=== PATIENT | female | born 2000 | race Caucasian/White ===

== ENCOUNTER 2019-03-23 13:46 | Inpatient (IN) | payer MEDICAID ==
[2019-03-23 14:18] VITALS: BMI 30.5
[2019-03-23] MEDS ORDERED: Nalbuphine HCL 10 mg/ml Ampule ONE (14:20)
[2019-03-23] MEDS ORDERED: Lactated Ringer's 1,000 ML IV ONE (14:21)
[2019-03-23] MEDS ORDERED: Oxytocin 30 UNIT in NS 500 ml 30 UNITS/500 ML BAG IV ONE ×3 (14:25→19:00)
[2019-03-23] MEDS ORDERED: Nalbuphine HCL 10 mg/ml Ampule IVP ONE ×2 (14:25→18:05)
[2019-03-23] MEDS ORDERED: Lactated Ringer's 1,000 ML IV SCH (14:30)
[2019-03-23 15:29] LABS: BASO % 0.3 % (0.0-2.0); EOS % 0.3 % (0.0-4.0); HEMOGLOBIN 10.6 g/dL (12.0-16.0); LYMPH # 1.8 K/uL (1.0-4.3); LYMPH % 16.9 % (20.0-40.0); MEAN CELL VOLUME 90.8 fl (81.0-99.0); MEAN CORPUSCULAR HEMOGLOBIN 31.9 pg (27.0-31.0); MEAN CORPUSCULAR HGB CONC 35.1 g/dL (33.0-37.0); MEAN PLATELET VOLUME 9.3 fl (7.2-11.7); MONO % 8.9 % (0.0-10.0); NEUT % 73.6 % (50.0-75.0); RBC 3.33 Mil/uL (3.80-5.20); RED CELL DISTRIBUTION WIDTH 13.8 % (11.5-14.5); WHITE BLOOD COUNT 10.9 K/uL (4.8-10.8)
--- NOTE | 2019-03-23 18:10 | OBHP ---
Datetime: 03/23/2019 14:40 IP Admit Plan: Admit to unit Abdomen - PN: Normal Lungs - PN: Normal Heart - PN: Normal HEENT - PN: Normal General - PN: Normal Membranes, Provider: Intact Gestation - Est Wks by US: 21.2 EGA AdmitDate IP: 21.2 Vital Signs Provider: Reviewed Vital Signs Provider Details: Elevated BP, chronic HTN IP Indication for Induction: Not Applicable IP Chief Complaint: Vaginal bleeding Dilatation, Provider: 10 Genitourinary Exam: Normal Datetime: 03/23/2019 14:15 IP Adm Impression: , intrauterine ; Intact Membranes IP Chief Complaint Other: Vaginal bleeding Admit Comment, IP Provider: HPI: Siri is a 18 year old G1 who was transferred from [place] ER via a mbulance for threatened labor. She presented to their ER earlier this morning for pain and va ginal bleeding. An US showed an open internal cervical os with membranes bulging into the vagina, but they appeared to be intact. A FHR was seen however there was borderline oligohydramnios and the fetu s was measuring 2 weeks behind her dating. Patient has continued to bleed since her arrival at the ER there. Per report from the ER physician she never had a genital/speculum exam and so there is no inf ormation known about her cervical dilation. FELIBERTO: 08/03/19 per LMP, concordant by 16 wk US PMH Chronic HTN Chlamydia infection earlier in pregnacy, treated PSH Denies Medications 200mg labetolol BID Allergies Shellfish - anaphylaxis Social FOB is involved in the . Denies tobacco, alcohol or drug use PHYSICAL EXAM Initial BPs >160/90, after several repeat pressures after patient had stopped crying there were 14 0s/80s Speculum exam: Bulging membranes seen 4-5cm from the vaginal introitus, no cervix was visualized labs: A+, antibody neg Bedside US: FHR seen, approximately 145 ASSESSMENT/PLAN: 18 year old G1 here with threatened labor. Given her speculum exam preter m delivery seems imminent at this time. Patient would not be a good candidate for rescue cerclage giv en her complete dilation and moderate vaginal bleeding, suggesting an abruption. Discussed management options and patient is undecided, she would like to wait and see what happens at this time. - Provide pain management options - Patient counseled on previability of - Discussed burial options as well for infant Plan discussed with attending, Dr. Bert Hernandez MD OB Fellow OB Hospitalist on-call.. . Earlier today, I received a call @9am from [facility] for this patient. The y attempted to contact her PMD at [facility] [place][Note 2]. When I called [facility] [place] and [facility] [place], the phys icain was not available and were not accepting transfer (PMD unavail). I spoke directly to Dr Maurilio Acevedo (he did send copy of chart). I accepted transfer to [facility]. She has bulgi ng membranes at 21w. With non-viable preg, I spoek to pt about conditoin with translators present. She understood condition and treatment optoin - medical induction. Risks/complications discussed als o. Her questoins answered and she stated that she understood. AUDRA
[2019-03-23] MEDS ORDERED: HYDROmorphone 0.5 mg/0.5 ml ISec IVP SCH (18:30)
[2019-03-23] MEDS ORDERED: Oxycodone/Acetaminophen 5/325 mg Tab PO PRN (19:10)
--- NOTE | 2019-03-23 20:14 | OBDS ---
DELIVERY PERSONNEL Delivery Doctor: Nay Noel DO French Comber: YiselmechelleCaryn RN MATERNAL INFORMATION Delivery Anesthesia: None Medications in Delivery: Pitocin 30u/500mL Maternal Complications: None Provider Comments: Notified 21w fetus and placenta all intact. No movement,. No breathing note d. 0,0. No vaginal bleeding noted. LABOR SUMMARY EDC: 08/01/2019 00:00 No. Babies in Womb: 1 Attempted: No Labor Anesthesia: None LABOR INFORMATION Reason for Induction: Not Applicable Complete Dilatation: 03/23/2019 14:00 Oxytocin: N/A Group B Beta Strep: Not Done Steroids Given: None Reason Steroids Not Administered: Not Applicable STAGES OF LABOR Stage 2 hrs: 4 Stage 2 min: 45 Stage 3 hrs: 0 Stage 3 min: 0 VAGINAL DELIVERY Episiotomy: None Laceration Extension: N/A Laceration Type: None Initial Vag Sponge Count: 5 Final Vag Sponge Count: 5 Initial Vag Sharps Count: 0 Final Vag Sharps Count: 0 Sponge Count Correct: Yes Sharps Count Correct: Yes Count Comment: 5 Lap pads BABY A INFORMATION Delivery Date/Time: 03/23/2019 18:45 Method of Delivery: Vaginal Born in Route : No : N/A Forceps: N/A Vacuum Extraction: N/A Shoulder Dystocia : No SHOULDER DYSTOCIA BABY A Delivery Date/Time: 03/23/2019 18:45 PLACENTA INFORMATION BABY A Placenta Delivery Time : 03/23/2019 18:45 Placenta Method of Delivery: Spontaneous Placenta Status: Delivered SCORES BABY A Heart Rate 1 min: Absent Resp Effort 1 min: Absent Reflex Irritability 1 min: No Response Muscle Tone 1 min: Flaccid Color 1 min: Blue/Pale Resuscitation Effort 1 min: N/A SCORE 1 MIN: 0 Heart Rate 5 min: Absent Resp Effort 5 min: Absent Reflex Irritability 5 min: No Response Muscle Tone 5 min: Flaccid Color 5 min: Blue/Pale Resuscitation Effort 5 min: N/A SCORE 5 MIN: 0 INFANT INFORMATION BABY A Gestational Age at Delivery: 21.2 Gestational Status: Outcome : Stillborn Infant Sex: Female CORD INFORMATION BABY A No. Cord Vessels: 3
[2019-03-24] MEDS ORDERED: Oxycodone/Acetaminophen 5/325 mg Tab PO PRN (00:04)
[2019-03-24 05:06] VITALS: O2SAT 99
[2019-03-24 06:35] LABS: BASO % 0.1 % (0.0-2.0); EOS # 0.1 K/uL (0.0-0.7); EOS % 0.5 % (0.0-4.0); HEMOGLOBIN 8.4 g/dL (12.0-16.0); LYMPH # 2.6 K/uL (1.0-4.3); LYMPH % 22.9 % (20.0-40.0); MEAN CELL VOLUME 90.2 fl (81.0-99.0); MEAN CORPUSCULAR HEMOGLOBIN 31.4 pg (27.0-31.0); MEAN CORPUSCULAR HGB CONC 34.8 g/dL (33.0-37.0); MEAN PLATELET VOLUME 9.1 fl (7.2-11.7); MONO # 1.1 K/uL (0.0-0.8); MONO % 9.3 % (0.0-10.0); NEUT # 7.6 K/uL (1.8-7.0); NEUT % 67.2 % (50.0-75.0); RBC 2.68 Mil/uL (3.80-5.20); RED CELL DISTRIBUTION WIDTH 13.9 % (11.5-14.5); WHITE BLOOD COUNT 11.3 K/uL (4.8-10.8)
--- NOTE | 2019-03-24 11:34 | CP.PCM.DIS ---
Provider - Provider Date of Admission: 03/23/19 14:21 Attending physician: Artem Noel DO Consults: 03/23/19 14:21 Anesthesiology Consult Routine Comment: Consulting Provider: Peter Salas Consulting Physician: Peter Salas Reason for Consult: labor Time Spent in preparation of Discharge (in minutes): 30 Diagnosis - Discharge Diagnosis (1) demise Status: Acute Hospital Course - Lab Results Lab Results: Most Recent Lab Values WBC 11.3 K/uL (4.8-10.8) H 03/24/19 04:30 RBC 2.68 Mil/uL (3.80-5.20) L 03/24/19 04:30 Hgb 8.4 g/dL (12.0-16.0) L D 03/24/19 04:30 Hct 24.1 % (34.0-47.0) L 03/24/19 04:30 MCV 90.2 fl (81.0-99.0) 03/24/19 04:30 MCH 31.4 pg (27.0-31.0) H 03/24/19 04:30 MCHC 34.8 g/dL (33.0-37.0) 03/24/19 04:30 RDW 13.9 % (11.5-14.5) 03/24/19 04:30 Plt Count 158 K/uL (130-400) 03/24/19 04:30 MPV 9.1 fl (7.2-11.7) 03/24/19 04:30 Neut % (Auto) 67.2 % (50.0-75.0) 03/24/19 04:30 Lymph % (Auto) 22.9 % (20.0-40.0) 03/24/19 04:30 Nicol[place] % (Auto) 9.3 % (0.0-10.0) 03/24/19 04:30 Eos % (Auto) 0.5 % (0.0-4.0) 03/24/19 04:30 Baso % (Auto) 0.1 % (0.0-2.0) 03/24/19 04:30 Neut # (Auto) 7.6 K/uL (1.8-7.0) H 03/24/19 04:30 Lymph # (Auto) 2.6 K/uL (1.0-4.3) 03/24/19 04:30 Nicollet # (Auto) 1.1 K/uL (0.0-0.8) H 03/24/19 04:30 Eos # (Auto) 0.1 K/uL (0.0-0.7) 03/24/19 04:30 Baso # (Auto) 0.0 K/uL (0.0-0.2) 03/24/19 04:30 Blood Type A POSITIVE 03/23/19 14:30 Antibody Screen Negative 03/23/19 14:30 BBK History Checked Patient has bt 03/23/19 14:30 - Hospital Course Hospital Course: 18 yo female @ 21 weeks presented to [facility] with threatened labor. On speculum exam, delivery was imminent and patient was counseled on options. Patient agreed to medical induction. Delivery occurred 03/23/19 @ 1845. Patient was not interested in autopsy. During hospital stay, patient was hemodynamically stable and vital signs were stable. Patient to follow up outpatient with within 2 weeks. Discharge Exam - Eye Exam Eye Exam: Normal appearance Pupil Exam: NORMAL ACCOMODATION - Respiratory Exam Respiratory Exam: Clear to PA & Lateral, NORMAL BREATHING PATTERN, UNREMARKABLE - Cardiovascular Exam Cardiovascular Exam: REGULAR RHYTHM, +S1, +S2 - GI/Abdominal Exam GI & Abdominal Exam: Normal Bowel Sounds, Unremarkable - Neurological Exam Neurological exam: Alert, Oriented x3 - Psychiatric Exam Psychiatric exam: Normal Affect, Normal Mood - Skin Skin Exam: Dry, Intact, Normal Color, Warm Discharge Plan - Follow Up Plan Condition: GOOD Disposition: HOME/ ROUTINE Instructions: Dealing With Miscarriage Additional Instructions: Follow up with in 2 weeks.
[2019-03-24 17:45] VITALS: BP 139/72; PULSE 98; RESP 17; TEMP 98.3
--- NOTE | 2019-03-24 19:44 | OBPPN ---
Datetime: 03/24/2019 07:18 PP Pain Prov: Within normal limits PP Nausea Prov: Denies PP Flatus Prov: Yes PP BM Prov: No PP Breasts Prov: Not Done PP Heart Prov: Normal PP Lungs Prov: Normal PP Abdomen/Uterus Prov: Normal PP Lochia Prov: Normal PP Vulva/Perineum Prov: Normal PP CVA Tenderness Prov: Normal PP Extremities Prov: Normal PP C/S Incision Prov: Not Applicable PP Progress Prov: Not Applicable PP Plan Prov: Continue present management PP Impression Other Prov: Stillbirth PP Progress Note Prov: 18 y/o , S/P SAB at 21 weeks on PPD 1 Patient seen and evaluated at bedside in telemetry. Pain is well controlled with pain medications. Marlon is on regular diet, which she is tolerating well w/o nausea or vomiting. Denies fever, chill s, nuasea, vomting, diarrhea. Denies any other new complains. Denies autopsy for stillborn fetus. VSS Gen: NAD Chest: RRR, S1S2 present Lungs; CTAB Abdomen: Soft, NT, ND, BS+ Ext: No pedal edema A/P: 18 y/o , S/P SAB at 21 weeks on PPD 1 - Ibuprofen for pain - Declined autopsy for stillborn fetus - encourage ambulation - Regular diet - COntinue with present Mx - Anticipated D/C today 03/24/19 if patient stable. Case diuscussed with Dr. Monserrat العلي, PGY1. Attending Note: Patient was discussed with the resident and I agree with the above. - Vital Signs Provider PP: Reviewed
--- NOTE | 2019-03-24 19:49 | OBDCSUM ---
Datetime: 03/24/2019 19:44 Discharged to, Provider: Home Follow up at, Provider: [facility] Disch Instr Activity: Normal activity Disch Instr Diet: Regular Discharge Instructions, Provider: Routine instructions given Discharge Diagnosis, Provider: Postterm Delivery Discharge Time: 03/24/2019 19:44 Follow up in weeks, Provider: 6 weeks Disch Referrals: None Contraception discussed, Prov: Yes Discharge Comment, Provider: Sponatneous vaginal delivery of an intrauterine . Clinically Stable. Discharge Diagnosis Prov Other: Sponatneous vaginal delivery of an intrauterine
== END 2019-03-24 12:10 | disposition home or self-care (01) | DRG 560 ==
LOC: H.EROB2 13:46 → H.L&D 14:03 → H.EROB2 14:20 → H.ERHOLD 14:21 → H.L&D 15:06 → H.TEL 22:29
PROVIDERS: ADMIT Obstetrics & Gynecology; ATTEND Obstetrics & Gynecology
PROC: 10E0XZZ Delivery of Products of Conception, External Approach (ICD-10-PCS; principal; 2019-03-23)
DX: O60.12X0 Preterm labor second trimester with preterm delivery second trimester, not applicable or unspecified (principal); O36.4XX0 Maternal care for intrauterine death, not applicable or unspecified; O41.02X0 Oligohydramnios, second trimester, not applicable or unspecified; Z37.1 Single stillbirth; O16.4 Unspecified maternal hypertension, complicating childbirth; Z3A.21 21 weeks gestation of pregnancy; O98.819 Other maternal infectious and parasitic diseases complicating pregnancy, unspecified trimester; A74.9 Chlamydial infection, unspecified